=== PATIENT | female | born 1955 | race Caucasian/White ===

== ENCOUNTER → 2016-05-04 | Outpatient (CLI) | payer OTHER, BC ==
--- NOTE | 2016-05-07 11:48 | MM ---
Reason for exam: screening (asymptomatic). Last mammogram was performed 1 year and 3 months ago. History: Patient is postmenopausal and is nulliparous. Family history of breast cancer in paternal grandmother at age 50. Taking estrogen for 5 years. Taking progesterone for 5 years. Physical Findings: A clinical breast exam by your physician is recommended on an annual basis and results should be correlated with mammographic findings. MG Screening Mammo w CAD Bilateral CC and MLO view(s) were taken. Prior study comparison: February 01, 2015, right breast MG 3d work up w/cad RT. January 28, 2015, bilateral MG screening mammo w CAD. The breast tissue is heterogeneously dense. This may lower the sensitivity of mammography. No significant changes when compared with prior studies. ASSESSMENT: Benign, BI-RAD 2 RECOMMENDATION: Routine screening mammogram of both breasts in 1 year.
== END | disposition home or self-care (01) ==
LOC: RADMAMWWP 15:26
PROVIDERS: ATTEND Family Medicine
DX: Z12.31 Encounter for screening mammogram for malignant neoplasm of breast (principal)

== ENCOUNTER → 2016-05-29 | Outpatient (CLI) | payer OTHER, BC ==
--- NOTE | 2016-05-29 11:58 | EST ---
DATE OF SERVICE: 05/29/2016 AGE: 60Y SEX: F HT: 63 WT: 193 lbs. Protocol Stanford: Other: Stage: II Dur. of Exercise: 5:30 *Heart Rate Blood Pressure *Rest: 73 Rest: 143/86 * *Max. Achieved: 152 Maximum BP: 234/66 85% PMHR: 138 100% PMHR: 152 *METS: 7.1 INDICATIONS: Chest pain. MEDICATIONS: STRESS DATA: Pretesting physical examination showed heart rate of 73, pressure is 143/86 mmm. Baseline EKG showed sinus rhythm. The patient exercised on treadmill under Stanford protocol for a total of 5 minutes and 30 seconds and achieved 7.0 METs. Max heart rate was 152, which is about 93% of maximum predicted heart rate. Maximum blood pressure was 234/66 mmHg. Clinically, the patient log shortness of breath in response to exercise. The EKG did not show any significant ST or T wave abnormalities consistent with ischemia. CONCLUSION: 1. Average exercise capacity. 2. Normal EKG in response to exercise.
--- NOTE | 2016-05-29 12:56 | ECHOF ---
Referral Reason:I10 htn MEASUREMENTS -------- HEIGHT: 160.0 cm WEIGHT: 87.5 kg BP: 183/86 RVIDd: 3.1 cm (< 3.3) IVSd: 1.0 cm (0.6 - 1.1) LVIDd: 4.6 cm (3.9 - 5.3) LVPWd: 1.2 cm (0.6 - 1.1) IVSs: 1.5 cm LVIDs: 2.8 cm LVPWs: 1.5 cm LA Diam: 3.5 cm (2.7 - 3.8) LAESV Index (A-L): 26.00 ml/m Ao Diam: 3.0 cm (2.0 - 3.7) AV Cusp: 1.9 cm (1.5 - 2.6) MV EXCURSION: 17.896 mm (> 18.000) MV EF SLOPE: 59 mm/s (70 - 150) EPSS: 0.3 cm MV E Otis: 0.81 m/s MV DecT: 267 ms MV A Otis: 0.94 m/s MV E/A Ratio: 0.86 RAP: 5.00 mmHg RVSP: 19.78 mmHg FINDINGS -------- Sinus rhythm. This was a technically good study. The left ventricular size is normal. There is borderline concentric left ventricular hypertrophy. Overall left ventricular systolic function is normal with, an EF between 60 - 65 %. The right ventricle is normal in size. The left atrium is normal in size. Normal LA size by volume 22+/-6 ml/m2. The right atrium is normal in size. Aortic valve is trileaflet and is mildly thickened. The mitral valve leaflets are mildly thickened. Mild mitral annular calcification present. Mild tricuspid regurgitation present. Right ventricular systolic pressure is normal at < 35 mmHg. Trace/mild (physiologic) pulmonic regurgitation. The aortic root size is normal. Normal inferior vena cava with normal inspiratory collapse consistent with estimated right atrial pressure of 5 mmHg. There is no pericardial effusion. CONCLUSIONS -------- 1. Sinus rhythm. 2. The mitral valve leaflets are mildly thickened. 3. Mild mitral annular calcification present. 4. Mild tricuspid regurgitation present. 5. Right ventricular systolic pressure is normal at < 35 mmHg. 6. Trace/mild (physiologic) pulmonic regurgitation. 7. The aortic root size is normal. 8. Normal inferior vena cava with normal inspiratory collapse consistent with estimated right atrial pressure of 5 mmHg. 9. There is no pericardial effusion. 10. This was a technically good study. 11. The left ventricular size is normal. 12. There is borderline concentric left ventricular hypertrophy. 13. Overall left ventricular systolic function is normal with, an EF between 60 - 65 %. 14. The right ventricle is normal in size. 15. Normal LA size by volume 22+/-6 ml/m2. 16. The right atrium is normal in size. 17. Aortic valve is trileaflet and is mildly thickened. TECHNICAL PROJECT COORDINATOR: Dawna Crump RDCS
== END | disposition home or self-care (01) ==
LOC: RADNMMAIN 10:23
PROVIDERS: ATTEND Family Medicine
DX: I08.1 Rheumatic disorders of both mitral and tricuspid valves (principal); I10 Essential (primary) hypertension; Z82.49 Family history of ischemic heart disease and other diseases of the circulatory system
CPT/HCPCS: 93017; 93306

== ENCOUNTER → 2017-06-01 | Outpatient (CLI) | payer OTHER, BC ==
[2017-06-01 11:07] LABS: Basophils % (A) 0 %; Eosinophils # (A) 0.3 k/uL (0-0.7); Eosinophils % (A) 4 %; HCT 44.6 % (34.0-46.0); HGB 14.1 gm/dL (11.4-16.0); Lymphocytes # (A) 1.5 k/uL (1.0-4.8); Lymphocytes % (A) 22 %; MCH 29.6 pg (25.0-35.0); MCHC 31.5 g/dL (31.0-37.0); Mean Platelet Volume 7.7; Monocytes # (A) 0.6 k/uL (0-1.0); Monocytes % (A) 8 %; Neutrophils # (A) 4.5 k/uL (1.3-7.7); Neutrophils % (A) 64 %; RBC 4.75 m/uL (3.80-5.40); RDW 12.2 % (11.5-15.5); WBC 7.1 k/uL (3.8-10.6)
[2017-06-01 11:17] LABS: ALT 39 U/L (9-52); AST 33 U/L (14-36); Albumin 4.1 g/dL (3.5-5.0); Alkaline Phosphatase 82 U/L (38-126); Anion Gap 8 mmol/L; Blood Urea Nitrogen 16 mg/dL (7-17); Calcium 9.5 mg/dL (8.4-10.2); Carbon Dioxide 27 mmol/L (22-30); Chloride 108 mmol/L (98-107); Cholesterol 196 mg/dL (<200); Glucose 93 mg/dL (74-99); HDL Cholesterol 64 mg/dL (40-60); LDL Cholesterol,Calculated 120 mg/dL (0-99); Potassium 4.7 mmol/L (3.5-5.1); Sodium 143 mmol/L (137-145); Total Bilirubin 0.5 mg/dL (0.2-1.3); Total Protein 6.8 g/dL (6.3-8.2); Triglycerides 62 mg/dL (<150)
[2017-06-01 11:19] LABS: Polychromasia Present
[2017-06-01 11:20] LABS: Platelet Count 275 k/uL (150-450)
== END | disposition home or self-care (01) ==
LOC: LABWHC1 10:05
PROVIDERS: ATTEND Family Medicine
DX: E66.9 Obesity, unspecified (principal); I10 Essential (primary) hypertension
CPT/HCPCS: 36415; 80053; 80061; 84443; 85025

== ENCOUNTER → 2017-06-18 | Outpatient (CLI) | payer BC ==
--- NOTE | 2017-06-20 07:21 | MM ---
Reason for exam: screening (asymptomatic). Last mammogram was performed 1 year and 2 months ago. History: Patient is postmenopausal and is nulliparous. Family history of breast cancer in paternal grandmother at age 50. Taking estrogen for 5 years. Taking progesterone for 5 years. Physical Findings: A clinical breast exam by your physician is recommended on an annual basis and results should be correlated with mammographic findings. MG 3D Screening Mammo W/Cad Bilateral CC and MLO view(s) were taken. Prior study comparison: May 04, 2016, bilateral MG screening mammo w CAD. February 01, 2015, right breast MG 3d work up w/cad RT. There are scattered fibroglandular densities. No significant changes when compared with prior studies. ASSESSMENT: Benign, BI-RAD 2 RECOMMENDATION: Routine screening mammogram of both breasts in 1 year.
== END | disposition home or self-care (01) ==
LOC: RADMAMWWP 16:06
PROVIDERS: ATTEND Family Medicine
DX: Z12.31 Encounter for screening mammogram for malignant neoplasm of breast (principal); Z98.890 Other specified postprocedural states
CPT/HCPCS: 77063; 77067

== ENCOUNTER → 2017-07-26 | Outpatient (CLI) | payer BC ==
--- NOTE | 2017-07-26 12:11 | XR ---
EXAMINATION TYPE: XR shoulder complete RT DATE OF EXAM: 07/26/2017 CLINICAL HISTORY: pain TECHNIQUE: Three views of the right shoulder are obtained. COMPARISON: None FINDINGS: There is no acute fracture/dislocation evident. The acromioclavicular and glenohumeral allen int spaces appear mildly narrowed. The visualized ribs are intact and unremarkable. IMPRESSION: 1. There is no acute fracture or dislocation. ICD 10 NO FRACTURE, INITIAL EVALUATION
--- NOTE | 2017-07-27 14:38 | ECHOF ---
Referral Reason:I10 HTN, R01.1 Cardiac [place] MEASUREMENTS -------- HEIGHT: 160.0 cm WEIGHT: 90.7 kg BP: 177/81 RVIDd: 2.8 cm (< 3.3) IVSd: 1.0 cm (0.6 - 1.1) LVIDd: 4.7 cm (3.9 - 5.3) LVPWd: 1.1 cm (0.6 - 1.1) IVSs: 1.5 cm LVIDs: 3.2 cm LVPWs: 1.6 cm LA Diam: 3.6 cm (2.7 - 3.8) LAESV Index (A-L): 28.84 ml/m Ao Diam: 2.7 cm (2.0 - 3.7) AV Cusp: 1.8 cm (1.5 - 2.6) MV EXCURSION: 16.269 mm (> 18.000) MV EF SLOPE: 44 mm/s (70 - 150) EPSS: 0.5 cm MV E Otis: 0.78 m/s MV DecT: 269 ms MV A Otis: 0.93 m/s MV E/A Ratio: 0.84 FINDINGS -------- Sinus rhythm. This was a technically good study. The left ventricular size is normal. There is borderline concentric left ventricular hypertrophy. Overall left ventricular systolic function is normal with, an EF between 55 - 60 %. The right ventricle is normal in size. LA is midly dilated 29-33ml/m2. The right atrium is normal in size. The aortic valve is trileaflet and appears structurally normal. The mitral valve is normal. Mild mitral regurgitation is present. The tricuspid valve appears structurally normal. There is no pulmonic regurgitation present. The aortic root size is normal. Normal inferior vena cava with normal inspiratory collapse consistent with estimated right atrial pre ssure of 5 mmHg. There is no pericardial effusion. CONCLUSIONS -------- 1. Sinus rhythm. 2. This was a technically good study. 3. The left ventricular size is normal. 4. There is borderline concentric left ventricular hypertrophy. 5. Overall left ventricular systolic function is normal with, an EF between 55 - 60 %. 6. LA is midly dilated 29-33ml/m2. 7. The aortic valve is trileaflet and appears structurally normal. 8. Mild mitral regurgitation is present. 9. The tricuspid valve appears structurally normal. 10. There is no pulmonic regurgitation present. 11. The aortic root size is normal. 12. Normal inferior vena cava with normal inspiratory collapse consistent with estimated right atrial pressure of 5 mmHg. 13. There is no pericardial effusion. HAND WORKER: Dawna Crump RDCS
== END | disposition home or self-care (01) ==
LOC: RADECHMAIN 11:23
PROVIDERS: ATTEND Family Medicine
DX: M25.511 Pain in right shoulder (principal); I51.7 Cardiomegaly; I34.0 Nonrheumatic mitral (valve) insufficiency; I10 Essential (primary) hypertension
CPT/HCPCS: 93306

== ENCOUNTER 2018-04-04 21:47 | Inpatient (IN) | payer BC ==
[2018-04-04 23:46] LABS: Basophils # (A) 0.1 k/uL (0-0.2); Basophils % (A) 1 %; Eosinophils # (A) 0.2 k/uL (0-0.7); Eosinophils % (A) 2 %; HCT 39.5 % (34.0-46.0); HGB 13.3 gm/dL (11.4-16.0); Lymphocytes # (A) 0.5 k/uL (1.0-4.8); Lymphocytes % (A) 6 %; MCH 29.6 pg (25.0-35.0); MCHC 33.7 g/dL (31.0-37.0); MCV 87.8 fL (80.0-100.0); Mean Platelet Volume 6.7; Monocytes # (A) 0.1 k/uL (0-1.0); Monocytes % (A) 1 %; Neutrophils # (A) 7.8 k/uL (1.3-7.7); Neutrophils % (A) 91 %; Platelet Count 306 k/uL (150-450); RDW 12.4 % (11.5-15.5); WBC 8.6 k/uL (3.8-10.6)
[2018-04-04 23:50] LABS: Albumin 3.9 g/dL (3.5-5.0); Calcium 8.9 mg/dL (8.4-10.2); Potassium 3.5 mmol/L (3.5-5.1); Total Bilirubin 0.5 mg/dL (0.2-1.3); Total Protein 6.7 g/dL (6.3-8.2)
[2018-04-05] MEDS ORDERED: MORPHINE SULFATE 4 MG/ML SYRINGE IV STA (00:38)
--- NOTE | 2018-04-05 00:41 | ED ---
Abdominal Pain HPI - General Chief Complaint: Abdominal Pain Stated Complaint: Lt flank pain Time Seen by Provider: 04/04/18 23:28 Source: patient, family Mode of arrival: ambulatory Limitations: no limitations - History of Present Illness MD Complaint: abdominal pain Onset/Timin -: hour(s) Location: LLQ Radiation: back Migration to: no migration Severity: severe Quality: stabbing Consistency: constant Improves With: nothing Worsens With: nothing Associated Symptoms: nausea - Related Data Home Medications Medication Instructions Recorded Confirmed Losartan Potassium [Cozaar] 25 mg PO DAILY 04/05/18 04/05/18 Previous Rx's Medication Instructions Recorded Ciprofloxacin HCl [Cipro] 500 mg PO Q12H 3 Days #14 tab 04/06/18 Allergies Allergy/AdvReac Type Severity Reaction Status Date / Time Sulfa (Sulfonamide Allergy Rash/Hives Verified 04/04/18 22:30 Antibiotics) Review of Systems ROS Statement: Those systems with pertinent positive or pertinent negative responses have been documented in the HPI. ROS Other: All systems not noted in ROS Statement are negative. Constitutional: Denies: fever, chills Respiratory: Denies: cough, dyspnea Cardiovascular: Denies: chest pain, palpitations, edema Gastrointestinal: Reports: as per HPI, abdominal pain, nausea. Denies: vomiting , diarrhea, constipation, melena, hematochezia Genitourinary: Reports: urgency, frequency. Denies: dysuria, hematuria Musculoskeletal: Denies: back pain Skin: Denies: rash Neurological: Denies: headache, weakness, numbness Past Medical History Past Medical History: No Reported History History of Any Multi-Drug Resistant Organisms: None Reported Past Surgical History: Hysterectomy, Tonsillectomy Past Psychological History: No Psychological Hx Reported Smoking Status: Former smoker Past Alcohol Use History: Occasional Past Drug Use History: None Reported - Past Family History Father Family Medical History: Diabetes Mellitus, Myocardial Infarction ([place]) Mother Additional Family Medical History / Comment(s): Leukemia Brother(s) Family Medical History: Myocardial Infarction ([place]) Sister(s) Family Medical History: Diabetes Mellitus General Exam Limitations: no limitations General appearance: alert, in no apparent distress Head exam: Present: atraumatic, normocephalic Eye exam: Present: normal appearance. Absent: scleral icterus, conjunctival injection ENT exam: Present: normal oropharynx Neck exam: Present: normal inspection Respiratory exam: Present: normal lung sounds bilaterally. Absent: respiratory distress, wheezes, rales, rhonchi, stridor Cardiovascular Exam: Present: regular rate, normal rhythm, normal heart sounds. Absent: systolic murmur, diastolic murmur, rubs, gallop GI/Abdominal exam: Present: soft, normal bowel sounds. Absent: distended, tenderness, guarding, rebound, rigid, mass, pulsatile mass, hernia Extremities exam: Present: normal inspection, normal capillary refill. Absent: pedal edema, calf tenderness Back exam: Present: normal inspection. Absent: CVA tenderness (R), CVA tenderness (L) Neurological exam: Present: alert Skin exam: Present: warm, dry, intact, normal color. Absent: rash Course Vital Signs 04/04/18 04/05/18 04/05/18 22:05 02:07 03:00 Temperature 98.8 F 98.7 F 99 F Pulse Rate 74 72 71 Respiratory 28 H 16 20 Rate Blood Pressure 162/78 144/74 133/69 O2 Sat by Pulse 92 L 97 97 Oximetry Medical Decision Making - Medical Decision Making Patient is 62-year-old woman with kidney stone and obstruction. There is also urinary tract infection associated. Case is discussed with Dr. Smith urologist on-call who will admit the patient for further treatment. - Lab Data Result diagrams: 04/04/18 23:30 04/04/18 23:30 Lab Results 04/04/18 04/04/18 04/05/18 Range/Units 23:30 23:30 01:07 WBC 8.6 (3.8-10.6) k/uL RBC 4.50 (3.80-5.40) m/uL Hgb 13.3 (11.4-16.0) gm/dL Hct 39.5 (34.0-46.0) % MCV 87.8 (80.0-100.0) fL MCH 29.6 (25.0-35.0) pg MCHC 33.7 (31.0-37.0) g/dL RDW 12.4 (11.5-15.5) % Plt Count 306 (150-450) k/uL Neutrophils % 91 % Lymphocytes % 6 % Monocytes % 1 % Eosinophils % 2 % Basophils % 1 % Neutrophils # 7.8 H (1.3-7.7) k/uL Lymphocytes # 0.5 L (1.0-4.8) k/uL Monocytes # 0.1 (0-1.0) k/uL Eosinophils # 0.2 (0-0.7) k/uL Basophils # 0.1 (0-0.2) k/uL Sodium 142 (137-145) mmol/L Potassium 3.5 (3.5-5.1) mmol/L Chloride 109 H (98-107) mmol/L Carbon Dioxide 23 (22-30) mmol/L Anion Gap 10 mmol/L BUN 17 (7-17) mg/dL Creatinine 0.83 (0.52-1.04) mg/dL Est GFR (CKD-EPI)AfAm 89 (>60 ml/min/1.73 sqM) Est GFR (CKD-EPI)NonAf 77 (>60 ml/min/1.73 sqM) Glucose 153 H (74-99) mg/dL Calcium 8.9 (8.4-10.2) mg/dL Total Bilirubin 0.5 (0.2-1.3) mg/dL AST 26 (14-36) U/L ALT 33 (9-52) U/L Alkaline Phosphatase 119 (38-126) U/L Total Protein 6.7 (6.3-8.2) g/dL Albumin 3.9 (3.5-5.0) g/dL Amylase 48 (30-110) U/L Lipase 90 (23-300) U/L Urine Color Light Yellow Urine Appearance Cloudy H (Clear) Urine pH 6.0 (5.0-8.0) Ur Specific Colon 1.011 (1.001-1.035) Urine Protein Negative (Negative) Urine Glucose (UA) Negative (Negative) Urine Ketones Negative (Negative) Urine Blood Trace H (Negative) Urine Nitrite Negative (Negative) Urine Bilirubin Negative (Negative) Urine Urobilinogen <2.0 (<2.0) mg/dL Ur Leukocyte Esterase Large H (Negative) Urine RBC 7 H (0-5) /hpf Urine WBC 182 H (0-5) /hpf Ur Squamous Epith Cells <1 (0-4) /hpf Urine Mucus Rare H (None) /hpf Disposition Clinical Impression: Calculus of kidney, Intractable abdominal pain, Intractable vomiting, Urinary tract infection Disposition: ADMITTED IP TO THIS [facility] Condition: Good Is patient prescribed a controlled substance at d/c from ED?: No
[2018-04-05] MEDS ORDERED: ONDANSETRON 4 MG/2 ML VIAL IVP STA ×2 (01:23→03:02)
[2018-04-05 01:32] LABS: Appearance,Urine Cloudy (Clear); Bilirubin,Urine Negative (Negative); Blood,Urine Trace (Negative); Color,Urine Light Yellow; Glucose,Urine (UA) Negative (Negative); Ketones,Urine Negative (Negative); Leukocyte Esterase,Urine Large (Negative); Mucus,Urine Rare /hpf; Nitrite,Urine Negative (Negative); Protein,Urine Negative (Negative); RBC,Urine 7 /hpf (0-5); Specific Gravity,Urine 1.011 (1.001-1.035); Squamous Epithelial Cell,Urine <1 /hpf (0-4); Urobilinogen,Urine <2.0 mg/dL (<2.0); WBC,Urine 182 /hpf (0-5)
--- NOTE | 2018-04-05 02:48 | CT ---
EXAMINATION TYPE: CT abdomen pelvis wo con DATE OF EXAM: 04/05/2018 COMPARISON: None HISTORY: pain CT DLP: 748.8 mGycm Automated exposure control for dose reduction was used. TECHNIQUE: Helical acquisition of images was performed from the lung bases through the pelvis. FINDINGS: Lung bases are clear of infiltrate. There is no pleural effusion. Heart size is normal. There is no p ericardial effusion. Liver shows no focal defect. Bile ducts are not dilated. Spleen appears normal. There is no pancreatic mass. There is no adrenal mass. There is left-sided hydronephrosis and extensive perinephric edema. There i s 1.5 cm calcification at the left renal pelvis. The right kidney has normal size and contour without hydronephrosis. Ureters are not dilated. Bladder distends smoothly. There is no inguinal hernia. There is no free fluid in the pelvis. Appendix appears normal. There is no sign of free air. There is no ascites. There is no mesenteric edema or adenopathy. The bony structures are intact. There is no compression f racture. Bony pelvis is intact. IMPRESSION: THERE IS HIGH-GRADE OBSTRUCTION OF THE LEFT KIDNEY DUE TO LARGE CALCULUS AT THE URETEROPELVIC JUNCTIO N. LEFT-SIDED PERINEPHRIC EDEMA. NORMAL APPENDIX.
[2018-04-05] MEDS ORDERED: LEVOFLOXACIN 750 MG TAB PO STA (02:58)
[2018-04-05] MEDS ORDERED: LEVOFLOXACIN 750MG-D5W PMX 750 MG in DEXTROSE/WATER 1 150ML.BAG IVPB STA (03:02)
[2018-04-05] MEDS ORDERED: HYDROmorphone 1 MG/ML 1 ML SYRINGE IVP STA (03:02)
[2018-04-05] MEDS ORDERED: ONDANSETRON 4 MG/2 ML VIAL IVP PRN ×2 (03:04→12:39)
[2018-04-05] MEDS ORDERED: ACETAMINOPHEN TAB 325 MG TAB PO PRN (03:04)
[2018-04-05] MEDS ORDERED: NALOXONE 0.4 MG/ML 1 ML VIAL IV PRN (03:04)
[2018-04-05] MEDS: SODIUM CHLORIDE 0.9% 1,000 ML IV SCH ×3 (03:21→21:42)
[2018-04-05] MEDS: HYDROmorphone 1 MG/ML 1 ML SYRINGE IVP PRN ×2 (08:14→16:58)
[2018-04-05] MEDS ORDERED: FAMOTIDINE 20 MG TAB PO SCH (09:00)
[2018-04-05] MEDS: FAMOTIDINE 20 MG/2 ML VIAL IV SCH ×2 (10:05→21:42)
[2018-04-05] MEDS ORDERED: METOCLOPRAMIDE 5 MG/ML 2 ML VIAL IVP PRN (12:28)
--- NOTE | 2018-04-05 12:59 | P.GSHP ---
History of Present Illness H&P Date: 04/05/18 62 yo female with a 1.5 cm upj stone with obstruction and pain Also appears to have a cystitis SHes admitted because of persistent pain and the uti.. She has not had previous stones. She denies fever. She does have recurrent bladder infections. There is no family history of stones. There is been no previous blood in the urine. She had some nausea week ago. The pain began yesterday with nausea. Her nausea is quite severe. Because of the persistent pain and nausea a stent will be placed. - Review of Systems All systems: negative - Constitutional Constitutional: Denies chills, Denies fever - EENT Eyes: denies blurred vision, denies pain Ears, nose, mouth and throat: Denies headache, Denies sore throat - Cardiovascular Cardiovascular: Denies chest pain, Denies shortness of breath - Respiratory Respiratory: Denies cough, Denies 7 - Gastrointestinal Gastrointestinal: Denies abdominal pain, Denies diarrhea, Denies nausea, Denies vomiting - Genitourinary (Female) Genitourinary: Reports as per HPI, Denies dysuria, Denies hematuria - Genitourinary (Male) Genitourinary: Denies dysuria, Denies hematuria - Musculoskeletal Musculoskeletal: Denies myalgias - Integumentary Integumentary: Denies pruritus, Denies rash - Neurological Neurological: Denies numbness, Denies weakness - Psychiatric Psychiatric: Denies anxiety, Denies depression - Endocrine Endocrine: Denies fatigue, Denies weight change Past Medical History Past Medical History: No Reported History History of Any Multi-Drug Resistant Organisms: None Reported Past Surgical History: Hysterectomy, Tonsillectomy Past Anesthesia/Blood Transfusion Reactions: No Reported Reaction Past Psychological History: No Psychological Hx Reported Smoking Status: Former smoker Past Alcohol Use History: Occasional Past Drug Use History: None Reported Additional Drug Use History / Comment(s): Pt. states that she drinks maybe once a week. - Past Family History Father Family Medical History: Diabetes Mellitus, Myocardial Infarction ([place]) Mother Additional Family Medical History / Comment(s): Leukemia Brother(s) Family Medical History: Myocardial Infarction ([place]) Sister(s) Family Medical History: Diabetes Mellitus Medications and Allergies Allergies Allergy/AdvReac Type Severity Reaction Status Date / Time Sulfa (Sulfonamide Allergy Rash/Hives Verified 04/04/18 22:30 Antibiotics) Surgical - Exam Vital Signs Temp Pulse Resp BP Pulse Ox 98.8 F 74 28 H 162/78 92 L 04/04/18 22:05 04/04/18 22:05 04/04/18 22:05 04/04/18 22:05 04/04/18 22:05 - General well developed, well nourished, moderate distress - Eyes PERRL - ENT no hearing loss - Respiratory normal expansion, normal respiratory effort - Cardiovascular Rhythm: regular - Abdomen Abdomen: soft, non tender, tender - Integumentary no rash, no growths - Neurologic normal coordination, normal sensation - Musculoskeletal normal gait, normal posture - Psychiatric oriented to time, oriented to person, oriented to place, speech is normal, memory intact Results - Labs 04/04/18 23:30 04/04/18 23:30 Abnormal Lab Results - Last 24 Hours (Table) 04/04/18 04/04/18 04/05/18 Range/Units 23:30 23:30 01:07 Neutrophils # 7.8 H (1.3-7.7) k/uL Lymphocytes # 0.5 L (1.0-4.8) k/uL Chloride 109 H (98-107) mmol/L Glucose 153 H (74-99) mg/dL Urine Appearance Cloudy H (Clear) Urine Blood Trace H (Negative) Ur Leukocyte Esterase Large H (Negative) Urine RBC 7 H (0-5) /hpf Urine WBC 182 H (0-5) /hpf Urine Mucus Rare H (None) /hpf Diabetes panel 04/04/18 Range/Units 23:30 Sodium 142 (137-145) mmol/L Potassium 3.5 (3.5-5.1) mmol/L Chloride 109 H (98-107) mmol/L Carbon Dioxide 23 (22-30) mmol/L BUN 17 (7-17) mg/dL Creatinine 0.83 (0.52-1.04) mg/dL Glucose 153 H (74-99) mg/dL Calcium 8.9 (8.4-10.2) mg/dL AST 26 (14-36) U/L ALT 33 (9-52) U/L Alkaline Phosphatase 119 (38-126) U/L Total Protein 6.7 (6.3-8.2) g/dL Albumin 3.9 (3.5-5.0) g/dL Calcium panel 04/04/18 Range/Units 23:30 Calcium 8.9 (8.4-10.2) mg/dL Albumin 3.9 (3.5-5.0) g/dL Pituitary panel 04/04/18 Range/Units 23:30 Sodium 142 (137-145) mmol/L Potassium 3.5 (3.5-5.1) mmol/L Chloride 109 H (98-107) mmol/L Carbon Dioxide 23 (22-30) mmol/L BUN 17 (7-17) mg/dL Creatinine 0.83 (0.52-1.04) mg/dL Glucose 153 H (74-99) mg/dL Calcium 8.9 (8.4-10.2) mg/dL Adrenal panel 04/04/18 Range/Units 23:30 Sodium 142 (137-145) mmol/L Potassium 3.5 (3.5-5.1) mmol/L Chloride 109 H (98-107) mmol/L Carbon Dioxide 23 (22-30) mmol/L BUN 17 (7-17) mg/dL Creatinine 0.83 (0.52-1.04) mg/dL Glucose 153 H (74-99) mg/dL Calcium 8.9 (8.4-10.2) mg/dL Total Bilirubin 0.5 (0.2-1.3) mg/dL AST 26 (14-36) U/L ALT 33 (9-52) U/L Alkaline Phosphatase 119 (38-126) U/L Total Protein 6.7 (6.3-8.2) g/dL Albumin 3.9 (3.5-5.0) g/dL - Imaging CT scan - abdomen: report reviewed, image reviewed CT scan - pelvis: report reviewed, image reviewed Assessment and Plan Assessment: Impression left upj stone with persistent colic, cystitis Plan: admit for pain control, antibiotics, stent placement. I will place a double-J catheter because of the persistent colic and nausea. She'll be set up for shockwave lithotripsy on April 21.
--- NOTE | 2018-04-05 13:00 | P.PN ---
Subjective Progress Note Date: 04/05/18 The patient was admitted to the hospital for a UPJ stone. She is having persistent colic and nausea. She does have a urine infection but does not appear to be septic at this point in time. Because of the persistent pain and colic she'll be set up for a stent later today when the operating room becomes freely. Objective - Vital Signs Vital signs: Vital Signs Temp 98.2 F 04/05/18 07:47 Pulse 67 04/05/18 07:47 Resp 17 04/05/18 07:47 BP 147/77 04/05/18 07:47 Pulse Ox 95 04/05/18 07:47 Intake & Output 04/04/18 04/05/18 04/05/18 18:59 06:59 18:59 Intake Total 475 Balance 475 Weight 90.718 kg Intake: Intake, IV Titration 475 Amount Levofloxacin 750Mg-D5w 100 Pmx 750 mg In Dextrose/ Water 1 150ml.bag @ 100 mls/hr IVPB ONCE STA Rx#: [id number] Sodium Chloride 0.9% 1, 375 000 ml @ 125 mls/hr IV . [facility] Rx#:[id number] Other: # Voids 1 - Labs CBC & Chem 7: 04/04/18 23:30 04/04/18 23:30 Labs: Abnormal Lab Results - Last 24 Hours (Table) 04/04/18 04/04/18 04/05/18 Range/Units 23:30 23:30 01:07 Neutrophils # 7.8 H (1.3-7.7) k/uL Lymphocytes # 0.5 L (1.0-4.8) k/uL Chloride 109 H (98-107) mmol/L Glucose 153 H (74-99) mg/dL Urine Appearance Cloudy H (Clear) Urine Blood Trace H (Negative) Ur Leukocyte Esterase Large H (Negative) Urine RBC 7 H (0-5) /hpf Urine WBC 182 H (0-5) /hpf Urine Mucus Rare H (None) /hpf
[2018-04-05] MEDS ORDERED: IV FLUID CONTINUATION 1,000 ML IV ONE ×2 (16:28)
[2018-04-05] MEDS ORDERED: diphenhydrAMINE 50 MG/ML 1 ML VIAL IVP PRN (18:09)
--- NOTE | 2018-04-05 18:50 | P.OP ---
Date of Procedure: 04/05/18 Preoperative Diagnosis: Left ureteral stone with obstruction and colic Postoperative Diagnosis: Same, pyonephrosis left Procedure(s) Performed: Cystoscopy placement of double-J catheter left Anesthesia: CIERRAA Surgeon: Darryn Jones Estimated Blood Loss (ml): 0 Pathology: none sent Condition: stable Disposition: PACU Indications for Procedure: The patient is 62. She is admitted to the hospital last night with severe ureteral colic due to a 12 mm obstructing UPJ stone. Her bladder urine is infected. Description of Procedure: Patient is brought to the operating suite. She is given a general anesthetic. She's placed lithotomy position with sterile prep and drape. Cystoscopy identifies acute cystitis. This is done with a 22-Yoruba sheath and Foroblique lens. The left ureteral orifice is identified. An 035 wires passed through the ureter by the stone into the renal pelvis. The stone dislodges and falls back into the renal pelvis. Over the wire is passed a 6 x 24 double-J catheter that coils in the renal pelvis and the bladder. Purulent urine drained out of the double-J catheter. The bladder is drained, the patient's awakened and returned recovery in good condition. She tolerated procedure well. She'll be set up for shockwave lithotripsy of bladder time.
[2018-04-06 00:55] VITALS: PULSE 79
[2018-04-06] MEDS: SODIUM CHLORIDE 0.9% 1,000 ML IV SCH (03:20)
[2018-04-06 07:04] VITALS: BP 124/67; RESP 16; TEMP 98.7
--- NOTE | 2018-04-06 07:59 | P.DS ---
Providers Date of admission: 04/05/18 03:05 Attending physician: Darryn Jones Primary care physician: Moni Pink MD Hospital Course: The patient was admitted to the hospital 04/05/2013 for a painful left renal stone and a urinary tract infection. Because of the persistent pain she underwent placement of a stent yesterday. Urine draining from the stent was infected looking. She feels much better this morning. Her pain nausea I have gone away. She is afebrile. Her urine culture has grown e coli which is pansensitive. She is ALLERGIC to sulfa. She'll be placed on Cipro 500 twice a day for 7 days. We will make arrangements for shockwave lithotripsy to the left renal stone. This will be done on April 21. Condition is good. Her diet is regular. She's been instructed to contact the office next week for appropriate arrangements for the shockwave lithotripsy. Patient Condition at Discharge: Good Plan - Discharge Summary Discharge Rx Participant: No New Discharge Prescriptions: New Ciprofloxacin HCl [Cipro] 500 mg PO Q12H 3 Days #14 tab No Action Losartan Potassium [Cozaar] 25 mg PO DAILY Discharge Medication List Losartan Potassium [Cozaar] 25 mg PO DAILY 04/05/18 [History] Ciprofloxacin HCl [Cipro] 500 mg PO Q12H 3 Days #14 tab 04/06/18 [Rx] Follow up Appointment(s)/Referral(s): Moni Pink MD [Primary Care Provider] - 1-2 days Darryn Jones MD [STAFF PHYSICIAN] - 1 Week Patient Instructions/Handouts: *[facility] - Cystoscopy Discharge Instructions , Cystoscopy (DC), Ureteral Stent Placement (DC) Discharge Disposition: HOME SELF-CARE
[2018-04-06] MEDS: FAMOTIDINE 20 MG/2 ML VIAL IV SCH (08:06)
--- NOTE | 2018-04-06 11:50 | FL ---
EXAMINATION TYPE: FL guidance operating room DATE OF EXAM: 04/05/2018 CLINICAL HISTORY: Left-sided kidney stones. TECHNIQUE: Fluoroscopy. COMPARISON: CT abdomen and pelvis earlier today. FINDINGS: Fluoroscopic guidance was provided during cystogram with left ureter stent insertion proce dure performed by Dr. Jones. A total of 11 seconds of fluoroscopic time was utilized during the proc edure and single spot fluoroscopic intraoperative image is acquired. Single image acquired shows prox imal portion of left ureter stent. IMPRESSION: As Above.
== END 2018-04-06 09:23 | disposition home or self-care (01) | DRG 660 ==
LOC: EC 21:47 → OBSVTOIN 04-05 03:05 → 4SSUR 04-05 03:05
PROVIDERS: ADMIT Urology; ATTEND Urology
PROC: 0T778DZ Dilation of Left Ureter with Intraluminal Device, Via Natural or Artificial Opening Endoscopic (ICD-10-PCS; principal; 2018-04-05 15:00)
DX: N20.2 Calculus of kidney with calculus of ureter (principal); N39.0 Urinary tract infection, site not specified; N13.6 Pyonephrosis; B96.20 Unspecified Escherichia coli [E. coli] as the cause of diseases classified elsewhere; Z80.6 Family history of leukemia; Z82.49 Family history of ischemic heart disease and other diseases of the circulatory system; Z83.3 Family history of diabetes mellitus; Z87.891 Personal history of nicotine dependence; Z88.2 Allergy status to sulfonamides; Z90.710 Acquired absence of both cervix and uterus
CPT/HCPCS: 36415; 74176; 80053; 81001; 82150; 83690; 85025

== ENCOUNTER → 2018-04-18 | Outpatient (CLI) | payer BC ==
[2018-04-18 09:48] LABS: Basophils # (A) 0.1 k/uL (0-0.2); Basophils % (A) 1 %; Eosinophils # (A) 0.3 k/uL (0-0.7); Eosinophils % (A) 3 %; HCT 41.7 % (34.0-46.0); HGB 13.4 gm/dL (11.4-16.0); Lymphocytes # (A) 1.8 k/uL (1.0-4.8); Lymphocytes % (A) 18 %; MCH 28.5 pg (25.0-35.0); Monocytes # (A) 0.6 k/uL (0-1.0); Monocytes % (A) 6 %; Neutrophils # (A) 7.3 k/uL (1.3-7.7); Neutrophils % (A) 71 %; Platelet Count 429 k/uL (150-450); RBC 4.68 m/uL (3.80-5.40); WBC 10.3 k/uL (3.8-10.6)
[2018-04-18 16:04] LABS: Albumin 4.4 g/dL (3.80-4.90); Albumin/Globulin Ratio 2.1 (1.20-2.10); Anion Gap 10.1 mmol/L (4.00-12.00); Calcium 9.2 mg/dL (8.7-10.3); Carbon Dioxide 27.9 mmol/L (21.6-31.8); Globulin 2.1 g/dL (1.6-3.3); LDL Cholesterol,Calculated 141.6 mg/dL (0.0-131.0); Potassium 4.5 mmol/L (3.5-5.5); Total Bilirubin 0.4 mg/dL (0.3-1.2); Total Protein 6.5 g/dL (6.2-8.2); VLDL Calculation 21.4 mg/dL (5.00-40.00)
[2018-04-18 18:45] LABS: Hemoglobin A1C 5.9 % (4.0-6.0)
== END | disposition home or self-care (01) ==
LOC: LABWHC1 08:06
PROVIDERS: ATTEND Family Medicine
DX: E78.00 Pure hypercholesterolemia, unspecified (principal); I10 Essential (primary) hypertension; E66.9 Obesity, unspecified; R53.83 Other fatigue
CPT/HCPCS: 36415; 80053; 80061; 83036; 85025

== ENCOUNTER → 2018-04-28 | Outpatient (CLI) | payer BC ==
--- NOTE | 2018-04-29 06:11 | XR ---
EXAMINATION TYPE: XR KUB DATE OF EXAM: 04/28/2018 4:21 PM CLINICAL HISTORY: Left-sided renal calculi status post lithotripsy April 21 TECHNIQUE: Two supine KUB images of the abdomen are obtained. COMPARISON: CT abdomen and pelvis April 05, 2018 FINDINGS: There is new left double-J ureter stent. Calcific fragments from lithotripsy have moved ret rograde into the left kidney collecting system with roughly 7 small fracture fragments now identified . Small 2 mm lower pole right renal calculus on CT is not clearly identified on plain films. Left-john ed pelvic phlebolith is redemonstrated. Overall nonobstructive bowel gas pattern. Visualized osseous structures are intact. IMPRESSION: Interval placement of left double-J ureter stent and successful fragmentation of 15 mm UP J calculus.
== END | disposition home or self-care (01) ==
LOC: RADXRMAIN 16:08
PROVIDERS: ATTEND Urology
DX: N20.1 Calculus of ureter (principal)
CPT/HCPCS: 74018

== ENCOUNTER → 2018-06-02 | Outpatient (CLI) | payer BC ==
--- NOTE | 2018-06-03 04:29 | XR ---
EXAMINATION TYPE: XR KUB DATE OF EXAM: 06/02/2018 CLINICAL DATA: 62-year-old female with lithotripsy 2 months ago, reevaluate left-sided kidney stones ., [facility] COMPARISON: 04/28/2018 FINDINGS: The left ureteral stent has been removed in the interval. A 7 mm and 4 mm left renal calculi remain in the mid to lower pole. The other calculi located in the upper to mid pole have resolved. Stable phlebolith in the left side of the pelvis. Mild overall stool burden. IMPRESSION: A couple residual 7 mm and 4 mm calculi in the left mid to lower pole. The previous upper to mid pole calculi appear to have passed.
== END | disposition home or self-care (01) ==
LOC: RADXRMAIN 14:29
PROVIDERS: ATTEND Urology
DX: N20.0 Calculus of kidney (principal)
CPT/HCPCS: 74018

== ENCOUNTER → 2018-06-20 | Outpatient (CLI) | payer BC ==
--- NOTE | 2018-06-23 10:18 | MM ---
Reason for exam: screening (asymptomatic). Last mammogram was performed 1 year ago. History: Patient is postmenopausal and is nulliparous. Family history of breast cancer in paternal grandmother at age 50. Took estrogen for 5 years. Took progesterone for 5 years. Physical Findings: A clinical breast exam by your physician is recommended on an annual basis and results should be correlated with mammographic findings. MG 3D Screening Mammo W/Cad Bilateral CC and MLO view(s) were taken. Prior study comparison: June 18, 2017, bilateral MG 3d screening mammo w/cad. May 04, 2016, bilateral MG screening mammo w CAD. The breast tissue is heterogeneously dense. This may lower the sensitivity of mammography. There is chronic nodularity in the right breast. There is no dominant lesion. No significant changes when compared with prior studies. ASSESSMENT: Benign, BI-RAD 2 RECOMMENDATION: Routine screening mammogram of both breasts in 1 year.
== END | disposition home or self-care (01) ==
LOC: RADMAMWWP 16:00
PROVIDERS: ATTEND Family Medicine
DX: Z12.31 Encounter for screening mammogram for malignant neoplasm of breast (principal)
CPT/HCPCS: 77063; 77067

== ENCOUNTER → 2018-06-22 | Outpatient (CLI) | payer BC ==
--- NOTE | 2018-06-22 14:04 | XR ---
Abdomen HISTORY: Status post left-sided lithotripsy Frontal view of the abdomen submitted and correlated to prior exam 06/02/2018 There is a calcification superimposed over the lower pole the left kidney which is likely decreased i n size compared to prior. There is a calcification in the left hemipelvis as on prior. No evident pne umoperitoneum or bowel obstruction. Overlying bowel gas may obscure detail. Degenerative disc changes are present in the visualized spine. There is a small spinal curvature. IMPRESSION: Limitations as described. Left-sided nephrolithiasis.
== END | disposition home or self-care (01) ==
LOC: RADXRMAIN 12:42
PROVIDERS: ATTEND Family Medicine
DX: N20.0 Calculus of kidney (principal)
CPT/HCPCS: 74018

== ENCOUNTER → 2019-06-27 | Outpatient (CLI) | payer BC ==
[2019-06-27 10:09] LABS: Basophils # (A) 0.1 k/uL (0-0.2); Basophils % (A) 1 %; Eosinophils # (A) 0.3 k/uL (0-0.7); Eosinophils % (A) 4 %; HCT 41.6 % (34.0-46.0); HGB 13.7 gm/dL (11.4-16.0); Lymphocytes # (A) 1.5 k/uL (1.0-4.8); Lymphocytes % (A) 25 %; MCH 29.6 pg (25.0-35.0); MCV 89.8 fL (80.0-100.0); Mean Platelet Volume 8.3; Monocytes # (A) 0.4 k/uL (0-1.0); Monocytes % (A) 7 %; Neutrophils # (A) 3.8 k/uL (1.3-7.7); Neutrophils % (A) 61 %; Platelet Count 244 k/uL (150-450); RBC 4.64 m/uL (3.80-5.40); RDW 11.8 % (11.5-15.5); WBC 6.2 k/uL (3.8-10.6)
[2019-06-27 11:58] LABS: Appearance,Urine Clear (Clear); Bilirubin,Urine Negative (Negative); Blood,Urine Negative (Negative); Color,Urine Light Yellow; Glucose,Urine (UA) Negative (Negative); Ketones,Urine Negative (Negative); Leukocyte Esterase,Urine Negative (Negative); Nitrite,Urine Negative (Negative); PH, Urine 6.5 (5.0-8.0); Protein,Urine Negative (Negative); Specific Gravity,Urine 1.009 (1.001-1.035); Urobilinogen,Urine <2.0 mg/dL (<2.0)
[2019-06-27 17:32] LABS: ALT 25 U/L (8-44); AST 28 U/L (13-35); African American GFR (CKD) 108.4 (60.0-200.0); Alkaline Phosphatase 102 U/L (41-126); BUN/Creat Ratio 17.14 Ratio (12.00-20.00); Calcium 9.3 mg/dL (8.7-10.3); Carbon Dioxide 27.9 mmol/L (21.6-31.8); Chloride 108 mmol/L (96-109); Chol/HDL Ratio 3.35; Cholesterol 184 mg/dL (0-200); Glucose 105 mg/dL (70-110); Non-African American GFR(CKD) 93.5 (60.0-200.0); Potassium 4.3 mmol/L (3.5-5.5); Sodium 144 mmol/L (135-145); Total Bilirubin 0.5 mg/dL (0.2-1.2); Total Protein 6.4 g/dL (6.2-8.2); Triglycerides <50.0 mg/dL (0.0-149.0)
== END | disposition home or self-care (01) ==
LOC: LABWHC1 09:30
PROVIDERS: ATTEND Family Medicine
DX: Z00.00 Encounter for general adult medical examination without abnormal findings (principal); I10 Essential (primary) hypertension
CPT/HCPCS: 36415; 80053; 80061; 81003; 84443; 85025

== ENCOUNTER → 2019-10-07 | Outpatient (CLI) | payer BC ==
--- NOTE | 2019-10-09 13:39 | MM ---
Reason for exam: screening (asymptomatic). Last mammogram was performed 1 year and 4 months ago. History: Patient is postmenopausal and is nulliparous. Family history of breast cancer in paternal grandmother at age 50. Took hormonal contraceptives for 25 years. Took estrogen for 5 years. Took progesterone for 5 years. Physical Findings: A clinical breast exam by your physician is recommended on an annual basis and results should be correlated with mammographic findings. MG 3D Screening Mammo W/Cad Bilateral CC and MLO view(s) were taken. Prior study comparison: June 20, 2018, bilateral MG 3d screening mammo w/cad. June 18, 2017, bilateral MG 3d screening mammo w/cad. There are scattered fibroglandular densities. Finding: There is a typically benign equal density (isodense), partially obscured round mass located 5 cm from the nipple in the middle position of the right breast. New finding since June 20, 2018 and June 18, 2017. ASSESSMENT: Incomplete: need additional imaging evaluation, BI-RAD 0 RECOMMENDATION: Ultrasound of the right breast. [facility] will attempt to contact patient to return for ultrasound.
== END | disposition home or self-care (01) ==
LOC: RADMAMWWP 15:56
PROVIDERS: ATTEND Family Medicine
DX: Z12.31 Encounter for screening mammogram for malignant neoplasm of breast (principal)
CPT/HCPCS: 77063; 77067

== ENCOUNTER → 2019-10-22 | Outpatient (CLI) | payer BC ==
--- NOTE | 2019-10-23 08:39 | USB ---
Reason for exam: additional evaluation requested from abnormal screening. History: Patient is postmenopausal and is nulliparous. Family history of breast cancer in paternal grandmother at age 50. Took hormonal contraceptives for 25 years. Took estrogen for 5 years. Took progesterone for 5 years. Physical Findings: Nurse Summary: all soft, nodular, movable (nurse ts). US Breast Workup Limited RT Right limited breast ultrasound including focal area of concern, retroareolar and axilla demonstrates a 0.5 x 0.5 x 0.03cm oval, complex, cystic lesion at 12 o'clock likely relating to fibrocystic change, a 0.4 x 0.4 x 0.3cm oval, hypoechoic lesion at 12 o'clock likely relating to fibrocystic change, a 0.6 x 0.6 x 0.5cm oval, complex, cystic lesion at 6 o'clock likely relating to fibrocystic change, a 0.8 x 0.8 x 0.6cm oval, cystic cluster at 11 o'clock may correspond to the mammographic finding and a 3.5 x 2.7 x 1.3cm oval, benign axilla node. These results were verbally communicated with the patient and result sheet given to the patient on 10/22/19. ASSESSMENT: Probably benign, BI-RAD 3 RECOMMENDATION: Follow-up diagnostic mammogram of the right breast in 6 months.
== END | disposition home or self-care (01) ==
LOC: RADUSWWP 14:59
PROVIDERS: ATTEND Family Medicine
DX: R92.8 Other abnormal and inconclusive findings on diagnostic imaging of breast (principal)

== ENCOUNTER → 2020-07-01 | Outpatient (CLI) | payer BC ==
--- NOTE | 2020-07-04 14:06 | MM ---
Reason for exam: follow-up at short interval from prior study. Last mammogram was performed 9 months ago. History: Patient is postmenopausal and is nulliparous. Family history of breast cancer in paternal grandmother at age 50. Took hormonal contraceptives for 25 years. Took estrogen for 5 years. Took progesterone for 5 years. Physical Findings: Nurse did not find any significant physical abnormalities on exam. MG 3D Diag Mammo W/Cad RT CC and MLO view(s) were taken of the right breast. Prior study comparison: October 07, 2019, bilateral MG 3d screening mammo w/cad. June 20, 2018, bilateral MG 3d screening mammo w/cad. The breast tissue is heterogeneously dense. This may lower the sensitivity of mammography. There is chronic nodularity in the right breast, stable, unchanged. These results were verbally communicated with the patient and result sheet given to the patient on 07/01/20. ASSESSMENT: Benign, BI-RAD 2 RECOMMENDATION: Return to routine screening mammogram schedule for both breasts. Back on schedule for September 2020.
== END | disposition home or self-care (01) ==
LOC: RADMAMWWP 13:08
PROVIDERS: ATTEND Family Medicine
DX: R92.8 Other abnormal and inconclusive findings on diagnostic imaging of breast (principal); Z80.3 Family history of malignant neoplasm of breast; Z78.0 Asymptomatic menopausal state
CPT/HCPCS: 77061; 77065

== ENCOUNTER → 2020-10-22 | Outpatient (CLI) | payer BC | END | disposition home or self-care (01) | DX: I77.6 Arteritis, unspecified (principal) ==

== ENCOUNTER → 2021-01-27 | Outpatient (CLI) | payer BC ==
[2021-01-27 11:06] LABS: Basophils # (A) 0.09 X 10*3/uL (0.00-0.10); Basophils % (A) 1.1 %; Eosinophils # (A) 0.23 X 10*3/uL (0.04-0.35); Eosinophils % (A) 2.7 %; HCT 40.9 % (37.2-46.3); HGB 13.4 g/dL (12.0-15.0); Lymphocytes # (A) 1.97 X 10*3/uL (0.90-5.00); Lymphocytes % (A) 23.4 %; MCH 28.9 pg (27.0-32.0); MCHC 32.8 g/dL (32.0-37.0); MCV 88.3 fL (80.0-97.0); Mean Platelet Volume 10.9 fL (9.5-12.2); Monocytes # (A) 0.67 X 10*3/uL (0.20-1.00); Monocytes % (A) 7.9 %; Neutrophils # (A) 5.45 X 10*3/uL (1.80-7.70); Neutrophils % (A) 64.7 %; Platelet Count 307 X 10*3/uL (140-440); RBC 4.63 X 10*6/uL (4.10-5.20); RDW 11.9 % (11.5-14.5); WBC 8.43 X 10*3/uL (4.50-10.00)
[2021-01-27 19:06] LABS: Chol/HDL Ratio 3.79 Ratio; HDL Cholesterol 50.7 mg/dL (40.00-60.00); LDL Cholesterol,Calculated 127.3 mg/dL (0.0-131.0); Triglycerides 69.9 mg/dL (0.00-149.00); VLDL Calculation 13.98 mg/dL (5.00-40.00)
== END | disposition home or self-care (01) ==
LOC: LABWHC1 07:46
PROVIDERS: ATTEND Family Medicine
DX: Z00.00 Encounter for general adult medical examination without abnormal findings (principal); I10 Essential (primary) hypertension; L84 Corns and callosities
CPT/HCPCS: 36415; 80061; 85025

== ENCOUNTER → 2022-04-02 | Outpatient (CLI) | payer BC ==
[2022-04-02 14:27] LABS: Basophils % (A) 1.1 %; Eosinophils # (A) 0.32 X 10*3/uL (0.04-0.35); Eosinophils % (A) 3.6 %; HCT 43.3 % (37.2-46.3); HGB 13.8 g/dL (12.0-15.0); Immature Grans, Automated 0.3 %; Lymphocytes # (A) 2.16 X 10*3/uL (0.90-5.00); Lymphocytes % (A) 24.1 %; MCH 29.3 pg (27.0-32.0); MCHC 31.9 g/dL (32.0-37.0); MCV 91.9 fL (80.0-97.0); Mean Platelet Volume 10.8 fL (9.5-12.2); Monocytes # (A) 0.73 X 10*3/uL (0.20-1.00); Monocytes % (A) 8.2 %; NRBC Per 100 WBC 0 /100 WBCS (0.0-0.0); Neutrophils # (A) 5.61 X 10*3/uL (1.80-7.70); Neutrophils % (A) 62.7 %; Platelet Count 328 X 10*3/uL (140-440); RBC 4.71 X 10*6/uL (4.10-5.20); RDW 11.8 % (11.5-14.5); WBC 8.95 X 10*3/uL (4.50-10.00)
[2022-04-02 15:19] LABS: ALT 22 U/L (8-44); AST 19 U/L (13-35); African American GFR (CKD) 92.8 (60.0-200.0); Albumin 4.4 g/dL (3.8-4.9); Albumin/Globulin Ratio 1.83 (1.60-3.17); Alkaline Phosphatase 87 U/L (41-126); BUN/Creat Ratio 22.63 Ratio (12.00-20.00); Blood Urea Nitrogen 17.7 mg/dL (9.0-27.0); Calcium 9.7 mg/dL (8.7-10.3); Carbon Dioxide 26.2 mmol/L (20.0-27.5); Chloride 104 mmol/L (96-109); Chol/HDL Ratio 3.81 Ratio; Globulin 2.4 g/dL (1.6-3.3); Glucose 95 mg/dL (70-110); LDL Cholesterol,Calculated 136.9 mg/dL (0.0-131.0); Non-African American GFR(CKD) 80.1 (60.0-200.0); Potassium 4.1 mmol/L (3.5-5.5); Sodium 143 mmol/L (135-145); Total Protein 6.8 g/dL (6.2-8.2); VLDL Calculation 17.22 mg/dL (5.00-40.00)
== END | disposition home or self-care (01) ==
LOC: LABWHC1 08:42
PROVIDERS: ATTEND Nurse Practitioner
DX: I10 Essential (primary) hypertension (principal); Z79.899 Other long term (current) drug therapy
CPT/HCPCS: 36415; 80053; 80061; 82306; 83036; 84439; 84443; 85025

== ENCOUNTER → 2022-04-11 | Outpatient (CLI) | payer BC ==
--- NOTE | 2022-04-12 08:34 | MM ---
Reason for Exam: Screening (asymptomatic). Last mammogram was performed 2 year(s) and 6 month(s) ago. Patient History: Menarche at age 14. Patient has no children. Left ovary removed at age 48. Right ovary removed at age 48. Hysterectomy at age 48. Postmenopausal. Patient used Estrogen for 5 years. Patient used Progesterone for 5 years. Patient used Hormonal Contraceptives for 25 years. Paternal grandmother had breast cancer, age 50. Risk Values: Estela 5 year model risk: 1.8%. NCI Lifetime model risk: 7.2%. Prior Study Comparison: 05/04/2016 Bilateral Screening Mammogram, [facility]. 06/18/2017 Bilateral Screening Mammogram, [facility]. 06/20/2018 Bilateral Screening Mammogram, [facility]. 10/07/2019 Bilateral Screening Mammogram, [facility]. 07/01/2020 Right Diagnostic Mammogram, [facility]. Tissue Density: There are scattered fibroglandular densities. Findings: Analyzed By CAD. There is no suspicious group of microcalcifications or new suspicious mass in either breast. Overall Assessment: Negative, BI-RAD 1 Management: Screening Mammogram of both breasts in 1 year. A clinical breast exam by your physician is recommended on an annual basis and results should be correlated with mammographic findings. [facility] will attempt to contact patient to return for supplemental views and ultrasound if indicated. Electronically signed and approved by: Gume Roman DO
== END | disposition home or self-care (01) ==
LOC: RADMAMWWP 08:00
PROVIDERS: ATTEND Family Medicine
DX: Z12.31 Encounter for screening mammogram for malignant neoplasm of breast (principal); Z78.0 Asymptomatic menopausal state; Z80.3 Family history of malignant neoplasm of breast
CPT/HCPCS: 77063; 77067

== ENCOUNTER → 2023-05-07 | Outpatient (CLI) | payer BC, MEDICARE ==
--- NOTE | 2023-05-08 20:50 | MM ---
Reason for Exam: Screening (asymptomatic). Last mammogram was performed 1 year(s) and 1 month(s) ago. Patient History: Menarche at age 14. Patient has no children. Left ovary removed at age 48. Right ovary removed at age 48. Hysterectomy at age 48. Postmenopausal. Patient used Estrogen for 5 years. Patient used Progesterone for 5 years. Patient used Hormonal Contraceptives for 25 years. Paternal grandmother had breast cancer, age 50. Risk Values: Estela 5 year model risk: 1.8%. NCI Lifetime model risk: 6.9%. Prior Study Comparison: 10/07/2019 Bilateral Screening Mammogram, [facility]. 07/01/2020 Right Diagnostic Mammogram, [facility]. 04/11/2022 Bilateral MG 3D screening mammo w/cad, [facility]. Tissue Density: The breast tissue is heterogeneously dense. This may lower the sensitivity of mammography. Findings: Analyzed By CAD. Unchanged asymmetric densities on the right. There is no suspicious group of microcalcifications or new suspicious mass in either breast. Overall Assessment: Benign, BI-RAD 2 Management: Screening Mammogram of both breasts in 1 year. . Patient should continue monthly self-breast exams. A clinical breast exam by your physician is recommended on an annual basis. This exam should not preclude additional follow-up of suspicious palpable abnormalities. Note on Estela scores and lifetime risk: 1. A Estela score greater than 3% is considered moderate risk. If this is the case, consider specialist referral to assess eligibility for a risk reducing agent. 2. If overall lifetime risk for the development of breast cancer is 20% or higher, the patient may qualify for future screening with alternating mammogram and breast MRI. Electronically signed and approved by: Lyle Trevino M.D. Radiologist
== END | disposition home or self-care (01) ==
LOC: RADMAMWWP 07:25
PROVIDERS: ATTEND Family Medicine
DX: Z12.31 Encounter for screening mammogram for malignant neoplasm of breast (principal); Z78.0 Asymptomatic menopausal state; Z80.3 Family history of malignant neoplasm of breast
CPT/HCPCS: 77063; 77067

== ENCOUNTER → 2023-09-04 | Outpatient (CLI) | payer MEDICARE, BC ==
[2023-09-04 14:24] LABS: Basophils # (A) 0.09 X 10*3/uL (0.00-0.10); Basophils % (A) 1.2 %; Eosinophils % (A) 3.9 %; HCT 42.8 % (37.2-46.3); HGB 14.1 g/dL (12.0-15.0); Lymphocytes # (A) 1.92 X 10*3/uL (0.90-5.00); Lymphocytes % (A) 25.1 %; MCH 30.9 pg (27.0-32.0); MCHC 32.9 g/dL (32.0-37.0); MCV 93.9 FL (80.0-97.0); Mean Platelet Volume 10.9 FL (9.5-12.2); Monocytes # (A) 0.75 X 10*3/uL (0.20-1.00); Monocytes % (A) 9.8 %; NRBC Per 100 WBC 0 X 10*3/uL (0.00-0.01); Neutrophils # (A) 4.57 X 10*3/uL (1.80-7.70); Neutrophils % (A) 59.6 %; Platelet Count 315 X 10*3/uL (140-440); RBC 4.56 X 10*6/uL (4.10-5.20); RDW 12.2 % (11.5-14.5); WBC 7.66 X 10*3/uL (4.50-10.00)
[2023-09-04 15:22] LABS: ALT 27 U/L (8-44); AST 27 U/L (13-35); Albumin 4.5 g/dL (3.8-4.9); Albumin/Globulin Ratio 1.88 Ratio (1.60-3.17); Alkaline Phosphatase 90 U/L (41-126); BUN/Creat Ratio 18.12 Ratio (12.00-20.00); Blood Urea Nitrogen 14.5 mg/dL (9.0-27.0); Calcium 9.5 mg/dL (8.7-10.3); Carbon Dioxide 25.5 mmol/L (21.6-31.8); Chloride 106 mmol/L (96-109); Chol/HDL Ratio 4.31 Ratio; Globulin 2.4 g/dL (1.6-3.3); Glucose 114 mg/dL (70-110); LDL Cholesterol,Calculated 145.8 mg/dL (0.0-131.0); Potassium 4.2 mmol/L (3.5-5.5); Sodium 144 mmol/L (135-145); Total Bilirubin 0.5 mg/dL (0.3-1.2); Total Protein 6.9 g/dL (6.2-8.2); VLDL Calculation 16.34 mg/dL (5.00-40.00)
== END | disposition home or self-care (01) ==
LOC: LABWHC1 08:27
PROVIDERS: ATTEND Family Medicine
DX: I10 Essential (primary) hypertension (principal); E78.5 Hyperlipidemia, unspecified; E55.9 Vitamin D deficiency, unspecified; R73.03 Prediabetes
CPT/HCPCS: 36415; 80053; 80061; 82306; 83036; 84443; 85025

== ENCOUNTER → 2023-09-17 | Outpatient (CLI) | payer MEDICARE, BC ==
--- NOTE | 2023-09-17 17:41 | US ---
EXAMINATION TYPE: US carotid duplex BILAT DATE OF EXAM: 09/17/2023 COMPARISON: NONE CLINICAL INDICATION: Female, 67 years old with history of R09.89 right carotid bruit; Bruit TECHNIQUE: Carotid duplex ultrasound examination. Indirect Doppler criteria was utilized. FINDINGS: EXAM MEASUREMENTS: RIGHT: Peak Systolic Velocity (PSV) cm/sec ----- Right CCA: 86.7 ----- Right ICA: 72.3 ----- Right ECA: 115.1 ICA/CCA ratio: 0.8 RIGHT: End Diastole cm/sec ----- Right CCA: 18.6 ----- Right ICA: 16.7 ----- Right ECA: 11.5 LEFT: Peak Systolic Velocity (PSV) cm/sec ----- Left CCA: 69.1 ----- Left ICA: 90.5 ----- Left ECA: 90.0 ICA/CCA ratio: 1.3 LEFT: End Diastole cm/sec ----- Left CCA: 17.5 ----- Left ICA: 38.7 ----- Left ECA: 8.7 VERTEBRALS (direction of flow): Right Vertebral: Antegrade Left Vertebral: Antegrade Rhythm: Normal [employer] NOTES: No significant stenosis seen IMPRESSION: Less than 50% stenosis bilateral carotid bifurcations. Criteria for Assigning % of Stenosis / Diameter reduction (Estimation based on the indirect measurements of the internal carotid artery velocities (ICA PSV). 1. Normal (no stenosis)=ICA PSV < 125 cm/s: ratio < 2.0: ICA EDV<40 cm/s. 2. Less than 50% stenosis=ICA PSV < 125 cm/s: ratio < 2.0: ICA EDV<40 cm/s. 3. 50 to 69% stenosis=ICA PSV of 125 to 230 cm/s: ration 2.0 ? 4.0: ICA EDV 40-100 cm/s. 4. Greater than 70% stenosis to near occlusion= ICA PSV > 230 cm/s: ratio > 4.0: ICA EDV > 100 cm/s. 5. Near occlusion= ICA PSV velocities may be low or undetectable: variable ratio and ICA EDV. 6. Total occlusion=unable to detect flow.
--- NOTE | 2023-09-17 20:34 | BD ---
EXAMINATION TYPE: Axial Bone Density DATE OF EXAM: 09/17/2023 CLINICAL HISTORY: 67 years old Female. ICD-10 CODE: Z78.0 post menopausal Height: 63 Weight: 208.3 FRAX RISK QUESTIONS: Alcohol (3 or more units per day): no Family History (Parent hip fracture): yes Glucocorticoids (More than 3mos): no (Ex: prednisone, prednisolone, methylprednisolone, dexamethasone, and hydrocortisone). History of Fracture in Adulthood: no Secondary Osteoporosis: 1. Type 1 Diabetes: no 2. Hyperthyroidism: no 3. Menopause before 45: no 4. Malnutrition: no 5. Chronic liver disease: no Rheumatoid Arthritis: no Current Tobacco Use: no RISK FACTORS HISTORY OF: Surgery to Spine/Hip(right/left)/Wrist (right/left): no EXAM MEASUREMENTS: Bone mineral densitometry was performed using the [employer] System. Bone mineral density as measured about the Lumbar spine is: ----- L1-L4(G/cm2): 1.236 T Score Values are as follows: ----- L1: 0.7 ----- L2: 0.2 ----- L3: 0.5 ----- L4: 0.4 ----- L1-L4: 0.5 Z Score Values are as follows: ----- L1: 1.3 ----- L2: 0.8 ----- L3: 1.1 ----- L4: 1.0 ----- L1-L4: 1.1 Bone mineral density : baseline Bone mineral density about the R hip (g/cm2): 1.136 Bone mineral density about the L hip (g/cm2): 1.034 T Score values are as follows: -----R Neck: 0.0 -----L Neck: -0.8 -----R Total: 1.0 -----L Total: 0.2 Z Score values are as follows: -----R Neck: 0.8 -----L Neck: 0.0 -----R Total: 1.6 -----L Total: 0.7 Bone mineral density : baseline FRAX%s: The graph provided illustrates a 13.7% chance for a major osteoporotic fx and a 0.5% chance f or the hips probability for fx in 10 years time. IMPRESSION: Normal (Values between +1 and -1 indicate normal bone mass). Consider repeating this study in 5 year s or sooner if there is some new clinical indication. NOTE: T-SCORE=SD OF THE YOUNG ADULT MEAN.
== END | disposition home or self-care (01) ==
LOC: RADBDWWP 14:20
PROVIDERS: ATTEND Family Medicine
DX: I65.23 Occlusion and stenosis of bilateral carotid arteries (principal); Z78.0 Asymptomatic menopausal state
CPT/HCPCS: 77080; 93880

== ENCOUNTER → 2024-06-09 | Outpatient (CLI) | payer MEDICARE ==
--- NOTE | 2024-06-09 07:49 | MM ---
Reason for Exam: Screening (asymptomatic). Last mammogram was performed 1 year(s) and 1 month(s) ago. Patient History: Menarche at age 14. Patient has no children. Left ovary removed at age 48. Right ovary removed at age 48. Hysterectomy at age 48. Postmenopausal. Patient used Estrogen for 5 years. Patient used Progesterone for 5 years. Patient used Hormonal Contraceptives for 25 years. Paternal grandmother had breast cancer, age 50. Risk Values: Estela 5 year model risk: 1.9%. NCI Lifetime model risk: 6.7%. Prior Study Comparison: 07/01/2020 Right Diagnostic Mammogram, [facility]. 04/11/2022 Bilateral MG 3D screening mammo w/cad, [facility]. 05/07/2023 Bilateral MG 3D screening mammo w/cad, [facility]. Tissue Density: The breasts are heterogeneously dense, which may obscure small masses. Findings: Analyzed By CAD. Right breast: There is no suspicious group of microcalcifications or new suspicious mass. Benign-appearing calcifications right breast. Left breast: There is no suspicious group of microcalcifications or new suspicious mass. Overall Assessment: Negative, BI-RAD 1 Management: Screening Mammogram of both breasts in [address] [facility] will attempt to contact patient to return for supplemental views and ultrasound if indicated. Patient should continue monthly self-breast exams. A clinical breast exam by your physician is recommended on an annual basis. This exam should not preclude additional follow-up of suspicious palpable abnormalities. Note on Estela scores and lifetime risk: 1. A Estela score greater than 3% is considered moderate risk. If this is the case, consider specialist referral to assess eligibility for a risk reducing agent. 2. If overall lifetime risk for the development of breast cancer is 20% or higher, the patient may qualify for future screening with alternating mammogram and breast MRI. [facility], , 06/09/2024 7:46 AM. Electronically signed and approved by: Gume Roman DO
== END | disposition home or self-care (01) ==
LOC: RADMAMWWP 06:57
PROVIDERS: ATTEND Family Medicine
DX: Z12.31 Encounter for screening mammogram for malignant neoplasm of breast (principal); R92.333 Mammographic heterogeneous density, bilateral breasts; R92.1 Mammographic calcification found on diagnostic imaging of breast; Z78.0 Asymptomatic menopausal state; Z80.3 Family history of malignant neoplasm of breast; Z92.0 Personal history of contraception
CPT/HCPCS: 77063; 77067

== ENCOUNTER → 2024-07-24 | Outpatient (CLI) | payer MEDICARE ==
--- NOTE | 2024-07-26 20:07 | CT ---
EXAMINATION TYPE: CT abdomen pelvis wo con DATE OF EXAM: 07/24/2024 9:25 AM COMPARISON: 04/05/2018 CLINICAL INDICATION: Female, 68 years old with history of R10.9 unspecified abd pain, Unspecified abd ominal pain TECHNIQUE: Axial images were obtained from above the diaphragm to the pubic rami in the axial plane a t 5 mm thick sections. Reconstructed images are reviewed on the computer in the coronal plane. CONTRAST: mL of . Study performed without Oral Contrast DLP: 974 mGycm, Automated exposure control for dose reduction was used. FINDINGS: Limited CT sections are obtained the lung bases. The lung bases are clear. Mild coronary artery sarah cification is present. CT ABDOMEN: Liver: Normal Spleen: Normal Pancreas: Normal Adrenal glands: The adrenal glands are normal. Gallbladder: Normal Kidneys: Left kidney appears normal without renal stones masses or perinephric stranding. No left hyd ronephrosis is evident. There is a punctate nonobstructing renal stone inferior pole right kidney. No right hydronephrosis is evident. No left hydroureter ureter is identified. Aorta: Vascular calcification is within the aorta. Inferior vena cava: Normal. CT PELVIS: Loops of bowel within the abdomen and pelvis are normal. This study is without oral contrast limi ting bowel evaluation. Appendix: Normal as visualized. Urinary bladder: Normal. Genitourinary structures: Uterus and ovaries are not identified. Osseous structures: No suspicious lytic or sclerotic lesions. IMPRESSION: 1. Nonobstructing punctate right inferior pole renal stone. 2. Diverticulosis without acute diverticulitis is present. 3. No acute changes. [facility], , 07/26/2024 8:04 PM
== END | disposition home or self-care (01) ==
LOC: RADCTMAIN 08:59
PROVIDERS: ATTEND Emergency Medicine
DX: N20.0 Calculus of kidney (principal); K57.90 Diverticulosis of intestine, part unspecified, without perforation or abscess without bleeding
CPT/HCPCS: 74176